=== PATIENT | male | born 1950 | race Caucasian/White ===

== ENCOUNTER 2016-12-30 09:56 | Emergency (ER) | payer OTHER, SELFPAY ==
[2016-12-30 10:34] LABS: Bilirubin Negative (Negative); Blood, Urine Moderate (Negative); Glucose, Urine (Dipstick) Negative (Negative); Leukocyte Negative (Negative); Nitrite Negative (Negative); Protein, Urine (Dipstick) Trace mg/dL (Neg-Trace); Specific Gravity, Urine 1.025 (1.005-1.030); Urobilinogen 0.2 mg/dL (0.2-1.0); pH, Urine 5.5 (5.0-9.0)
[2016-12-30 10:37] LABS: Clarity Hazy (Clear)
[2016-12-30 10:45] LABS: RBC/HPF 21-50 HPF (0-3)
[2016-12-30 10:46] LABS: WBC/HPF 0-3 HPF (0-3)
[2016-12-30 10:47] LABS: Bacteria/HPF Rare-Few HPF (None Seen)
[2016-12-30] MEDS ORDERED: Ondansetron ODT 4 MG TAB ONE (11:02)
[2016-12-30] MEDS ORDERED: Ketorolac Tromethamine 60 MG/2 ML VIAL ONE (11:02)
--- NOTE | 2016-12-30 11:32 | CT ---
CT ABDOMEN AND PELVIS NONCONTRAST: Date: 12/30/16 HISTORY: Left flank pain, dysuria. FINDINGS: No comparison. The left renal collecting system and ureter are moderately distended to the level of a 0.8 cm calculu s within the mid left ureter at the L4-5 level. The left ureter beyond this point is decompressed. Multiple stones are present within calices of each kidney, measuring up to 0.6 cm on the left and 0.5 cm on the right. Urinary bladder is incompletely distended. Lack of contrast limits evaluation for other abnormalities. The liver is diffusely hypodense. There i s calcification in the arterial structures. Diverticula arise from the colon. IMPRESSION: 1. Partial obstruction at an 8 mm mid left ureteral calculus. Additional nonobstructing bilateral re nal calculi. 2. Atherosclerosis. 3. Diverticulosis. 4. Hepatic steatosis. POS: BEVERLEY
== END 2016-12-30 11:50 | disposition home or self-care (01) ==
LOC: MADERS 09:56
DX: N20.2 Calculus of kidney with calculus of ureter (principal); E11.9 Type 2 diabetes mellitus without complications; F17.200 Nicotine dependence, unspecified, uncomplicated
CPT/HCPCS: 74176; 81003; 81015; 96372; J1885; Q0162

== ENCOUNTER 2018-05-03 14:45 | Emergency (ER) | payer MEDICARE, SELFPAY ==
[2018-05-03 15:01] LABS: #Basophils 0.1 thou/uL (0.0-0.2); #Eosinphils 0.4 thou/uL (0.0-0.7); #Lymphocytes 2.6 thou/uL (1.20-3.40); #Monocytes 0.8 thou/uL (0.11-0.59); #Neutrophils 6.3 thou/uL (1.40-6.50); %Basophils 0.9 % (0.0-1.0); %Eosinophils 3.7 % (0.0-10.0); %Lymphocytes 25.5 % (21.0-51.0); %Monocytes 7.8 % (0.0-10.0); %Neutrophils 62.1 % (42.0-75.0); Hemoglobin 14.2 g/dL (14.0-18.0); Mean Corpuscular HGB CONC 32.2 g/dL (32.0-36.0); Mean Corpuscular Hemoglobin 29.6 pg (27.0-31.0); Mean Platelet Volume 5.4 fL (7.4-10.4); Platelet Count 223 thou/uL (130-400); RBC Distribution Width 12.3 % (11.5-14.5); White Blood Cell (WBC) Count 10.1 thou/uL (4.8-10.8)
[2018-05-03 15:07] LABS: Prothrombin Time 13.1 SEC (12.0-14.7)
[2018-05-03 15:08] LABS: PTT 35.1 SEC (22.9-36.1)
[2018-05-03 15:17] LABS: ALT (SGPT) 32 U/L (8-55); AST (SGOT) 22 U/L (5-34); Albumin 4.3 g/dL (3.4-4.8); Alkaline Phosphatase 64 U/L (40-150); Anion Gap 11 mmol/L (10-20); BUN (Urea Nitrogen) 13 mg/dL (8.4-25.7); Bilirubin, Total 0.4 mg/dL (0.2-1.2); CK (CPK) 241 U/L (30-200); Calc. Creatinine Clearance 0 mL/min (70-130); Calcium 10.1 mg/dL (7.8-10.44); Carbon Dioxide 31 mmol/L (23-31); Chloride 99 mmol/L (98-107); Estimated GFR-MDRD 69; Globulin 3.7 g/dL (2.4-3.5); Glucose 152 mg/dL (80-115); Potassium 4.4 mmol/L (3.5-5.1); Sodium 137 mmol/L (136-145)
[2018-05-03] MEDS ORDERED: Aspirin Chewable 81 MG TAB ONE (15:32)
--- NOTE | 2018-05-03 15:50 | CT ---
CT HEAD NONCONTRAST: HISTORY: Altered mental status. Prior surgery. Stroke protocol. FINDINGS: There is no evidence of acute intracranial hemorrhage or infarct. Right parietal occipital craniotom y changes are present with overlying metallic fixation plates and underlying metallic clips and coils . An oval area of CSF density involving the lateral margin of the left temporal lobe may represent a n old area of encephalomalacia from prior infarct or result of prior surgery. There is no mass effec t or shift of midline structures. The visualized paranasal sinuses remain well aerated. Fluid layer s within the dependent portion of the right maxillary sinus. Mild mucosal thickening is in the ethmo id air cells. IMPRESSION: 1. Old postoperative and possible old ischemic changes. No acute intracranial abnormalities are dem onstrated. 2. Right maxillary sinusitis. POS: SAMANTHA
== END 2018-05-03 16:11 | disposition short-term general hospital (02) ==
LOC: MADERS 14:45
DX: I63.9 Cerebral infarction, unspecified (principal); E11.9 Type 2 diabetes mellitus without complications; I10 Essential (primary) hypertension; I25.2 Old myocardial infarction; G51.0 Bell's palsy; F17.210 Nicotine dependence, cigarettes, uncomplicated; Z87.442 Personal history of urinary calculi; Z79.899 Other long term (current) drug therapy
CPT/HCPCS: 36415; 36416; 70450; 80053; 82550; 84484; 85025; 85610; 85730; 93005

== ENCOUNTER 2019-01-02 12:23 | Outpatient (CLI) | payer MEDICARE ==
--- NOTE | 2019-01-02 14:30 | CT ---
CT ABDOMEN AND PELVIS WITHOUT CONTRAST: HISTORY: Renal stones. No cholelithiasis. COMPARISON: 12/30/2016. FINDINGS: Absence of oral and IV contrast reduces the sensitivity of the exam, particularly for evaluation of s olid organs involved. Calcified granulomas noted at the right lung base. There are calcified granul omas in the liver and spleen. There is fatty infiltration of the liver. No calcified gallstones are noted. No free air or free fluid is seen in the abdomen or pelvis. There are bilateral renal calculi. No calculi are seen in the ureters or the urinary bladder. No hy droureteral nephrosis on either side. The small bowel loops are not abnormally dilated. There is colonic diverticulosis. A normal-appeari ng appendix is present. There are vascular calcifications without evidence of aneurysmal dilatation of the abdominal aorta. There are degenerative changes in the spine. IMPRESSION: 1. Nonobstructing bilateral renal calculi. 2. Colonic diverticulosis. POS: OFF
== END 2019-01-02 12:24 | disposition home or self-care (01) ==
LOC: MADCT 12:23
PROVIDERS: ATTEND Urology
DX: N20.0 Calculus of kidney (principal); K57.30 Diverticulosis of large intestine without perforation or abscess without bleeding
CPT/HCPCS: 74176

== ENCOUNTER 2022-01-28 09:32 | Outpatient (CLI) | payer MEDICARE ==
[2022-01-28 10:00] LABS: #Basophils 0.1 thou/uL (0.0-0.2); #Eosinphils 0.3 thou/uL (0.0-0.7); #Lymphocytes 1.9 thou/uL (1.20-3.40); #Monocytes 0.7 thou/uL (0.11-0.59); #Neutrophils 4.9 thou/uL (1.40-6.50); %Basophils 1.3 % (0.0-1.0); %Eosinophils 3.4 % (0.0-10.0); %Monocytes 8.4 % (0.0-10.0); %Neutrophils 62.9 % (42.0-75.0); Hemoglobin 15.7 g/dL (14.0-18.0); Mean Corpuscular HGB CONC 33.3 g/dL (32.0-36.0); Mean Corpuscular Hemoglobin 31.1 pg (27.0-31.0); Mean Corpuscular Volume 93.5 fl (78.0-98.0); Platelet Count 233 10x3/uL (130-400); RBC Distribution Width 11.8 % (11.5-14.5); Red Blood Cell (RBC) Count 5.04 mill/uL (4.70-6.10); White Blood Cell (WBC) Count 7.8 10x3/uL (4.8-10.8)
[2022-01-28 10:14] LABS: ALT (SGPT) 12 U/L (8-55); AST (SGOT) 15 U/L (5-34); Albumin 4.1 g/dL (3.4-4.8); Alkaline Phosphatase 73 U/L (40-110); Anion Gap 11 mmol/L (10-20); BUN (Urea Nitrogen) 18 mg/dL (8.4-25.7); Bilirubin, Total 0.2 mg/dL (0.2-1.2); Calc. Creatinine Clearance 0 mL/min (70-130); Calcium 9.5 mg/dL (7.8-10.44); Carbon Dioxide 26 mmol/L (23-31); Cardiac Risk 3.9 (Less than 4.5); Chloride 103 mmol/L (98-107); Cholesterol 154 mg/dl (< 200 Desired); Estimated GFR 86; Globulin 3.8 g/dL (2.4-3.5); Glucose 132 mg/dL (80-115); HDL Cholesterol 40 mg/dL (>60 Neg Risk); LDL Cholesterol, Calculated 88 mg/dL; Potassium 4.4 mmol/L (3.5-5.1); Protein, Total 7.9 g/dL (5.8-8.1); Sodium 136 mmol/L (136-145); Triglycerides 130 mg/dL (Less than 150)
[2022-01-28 16:09] LABS: Hemoglobin A1c 6.5 % (4.0-6.0)
[2022-01-28 16:32] LABS: Free T4 (Free Thyroxine) 0.97 ng/dL (0.70-1.48)
[2022-01-28 16:33] LABS: Vitamin D, 25 Hydroxy 39.6 ng/ml (> 30.0)
== END 2022-01-28 09:33 | disposition home or self-care (01) ==
LOC: MADLAB 09:32
PROVIDERS: ATTEND Family Medicine
DX: I15.0 Renovascular hypertension (principal); E03.8 Other specified hypothyroidism; E78.2 Mixed hyperlipidemia; E11.8 Type 2 diabetes mellitus with unspecified complications; R05.1 Acute cough; E55.9 Vitamin D deficiency, unspecified
CPT/HCPCS: 36415; 71046; 80053; 80061; 82306; 83036; 84439; 84443; 85025; 86850; 86900; 86901